=== PATIENT | female | born 1980 | race Caucasian/White ===

== ENCOUNTER 2023-06-28 13:08 | Emergency (ER) | payer BC ==
[~2023-06-28] VITALS: Ht 172.7 cm; Wt 87.1 kg
[~2023-06-28 13:08] MED LIST: ALUMAG30SU PO; Apple Cider Vi1 EACH PO; BUPR150ER PO; CHOL10002; DIPH50 PO; DOCU100 PO; HYDACE10B PO; HYDR1TAB94 PO; IBUP800 PO; Multiple Vitam1 EACH PO; NAPR220 PO; Norco 5-325 Ta1 EACH PO; PANT40 PO; PROM25 PO; Prilosec Otc20 MG PO; SERT100 PO; SLEEP AID25 MG PO; Sleep Aid25 M1 PO; TRI-SPRINTEC PO; Zofran Odt4 MG SL; [UNRECOGNIZED DRUG - OTHER] PO
[2023-06-28 14:16] LABS: BASOPHILS PERCENT AUTO 1 % (0-2); EOSINOPHILS ABSOLUTE AUTO 0.05 K/mm3 (0.00-0.68); EOSINOPHILS PERCENT AUTO 1 % (0-6); Hematocrit 49.4 % (33.0-51.0); Hemoglobin 16.8 g/dL (11.5-16.0); IMMATURE GRAN ABSOLUTE AUTO 0.03 K/mm3 (0.00-0.10); IMMATURE GRAN PERCENT AUTO 0 % (0-1); LYMPHOCYTES PERCENT AUTO 19 % (21-46); MONOCYTES ABSOLUTE AUTO 0.46 K/mm3 (0.16-1.47); MONOCYTES PERCENT AUTO 5 % (4-13); Mean Corpuscular HGB 30.1 pg (26.0-34.0); Mean Corpuscular Volume 88 fL (80-100); Mean Platelet Volume 9.6 fL (9.1-12.4); NEUTROPHILS ABSOLUTE AUTO 6.35 K/mm3 (1.96-9.15); NEUTROPHILS PERCENT AUTO 74 % (41-73); Platelet Count 245 K/mm3 (150-400); RDW Coefficient Variation 11.7 % (11.7-14.2); RDW Standard Deviation 37.6 fL (35.1-46.3); Red Blood Cell Count 5.59 M/mm3 (3.80-5.20); White Blood Cell Count 8.59 K/mm3 (4.00-11.30)
[2023-06-28 14:23] LABS: Source, Urine Clean Catch
[2023-06-28 14:27] LABS: Appearance, Urine Clear (Clear); Bilirubin, Urine Neg (Neg); Blood, Urine Neg (Neg); Color, Urine Yellow (P-Yellow); Glucose Qualitative, Urine Neg (Neg); Ketones, Urine 2+ (Neg); Leukocyte Esterase, Urine Neg (Neg); Nitrite, Urine Neg (Neg); Protein, Urine Neg (Neg); Urobilinogen, Urine NORM (Normal)
[2023-06-28 14:34] LABS: Albumin, Blood 3.9 g/dL (3.4-5.0); Albumin/Globulin Ratio 1.1 (0.8-1.8); Bilirubin, Total 0.7 mg/dL (0.1-1.0); Bun/Creatinine Ratio 10.4 (12.0-20.0); Calcium, Blood 8.9 mg/dL (8.5-10.1); Creatinine, Blood 0.96 mg/dL (0.40-1.00); Globulin, Blood 3.4 g/dL (2.2-4.0); Potassium, Blood 4.1 mmol/L (3.5-5.5); Total Protein, Blood 7.3 g/dL (6.4-8.2)
[2023-06-28] MEDS ORDERED: SUCR1 (18:22)
[2023-06-28] MEDS ORDERED: CIPR250 (18:22)
[2023-06-28] MEDS ORDERED: ONDA4ODT (18:23)
[2023-06-28] MEDS ORDERED: ONDA4ODT MM (19:40)
[2023-06-28] MEDS ORDERED: OXAYDO5 M1 PO (19:40)
[2023-06-28 19:45] VITALS: BP 114/72
== END 2023-06-28 20:03 | disposition home or self-care (01) ==
LOC: ER 13:08
PROVIDERS: Emergency Medicine
DX: K44.9 Diaphragmatic hernia without obstruction or gangrene (principal); R07.9 Chest pain, unspecified; R63.8 Other symptoms and signs concerning food and fluid intake; F17.210 Nicotine dependence, cigarettes, uncomplicated; Z79.899 Other long term (current) drug therapy
CPT/HCPCS: 36415; 71046; 80053; 81003; 81025; 83605; 83690; 84484; 85025; 93005; 93010; A9270; J1885; J7030

== ENCOUNTER 2023-07-17 06:48 | Day surgery (SDC) | payer BC ==
[~2023-07-17] VITALS: Ht 172.7 cm; Wt 79.8 kg
[~2023-07-17 06:48] MED LIST changes: +CIPR250; +ONDA4ODT MM; +ONDA4ODT PO; +OXAYDO5 M1 PO; +SUCR1
[2023-07-17 08:56] VITALS: BP 100/72
[2023-07-23] MEDS ORDERED: ACET80 PO (09:40)
[2023-07-23] MEDS ORDERED: SUCR1 PO (09:41)
== END 2023-07-17 08:50 | disposition home or self-care (01) ==
LOC: ORSCSDS 06:48
PROVIDERS: Surgery
PROC: 0DB98ZX Excision of Duodenum, Via Natural or Artificial Opening Endoscopic, Diagnostic (ICD-10-PCS; principal; 2023-07-17 08:00)
PROC: 0DB68ZX Excision of Stomach, Via Natural or Artificial Opening Endoscopic, Diagnostic (ICD-10-PCS; principal; 2023-07-17 08:00)
DX: R10.13 Epigastric pain (principal); K21.9 Gastro-esophageal reflux disease without esophagitis; R11.0 Nausea; K44.9 Diaphragmatic hernia without obstruction or gangrene; F17.210 Nicotine dependence, cigarettes, uncomplicated; Z79.899 Other long term (current) drug therapy
CPT/HCPCS: 88305; 88342; J2704; J7120

== ENCOUNTER 2023-07-24 09:26 | Inpatient (IN) | payer BC ==
[~2023-07-24] VITALS: Ht 172.7 cm; Wt 78.8 kg
[2023-07-24] VITALS (26 sets, daily range): BP systolic 104–128; BP diastolic 44–89
[~2023-07-24 09:26] MED LIST changes: +ACET80 PO; +SUCR1 PO
--- NOTE | 2023-07-24 10:07 | NUR ---
Ambulatory in Day Surgery. History, Chart, Medications and Allergies reviewed before start of procedure. Lungs clear T/O to Auscultation. Patient confirms NPO status and agrees with scheduled surgery. Pre-Op teaching done. Pt verbalizes understanding. Patient States Post-Procedure ride home has been arranged. PT BELONGINGS PLACED [facility].
--- NOTE | 2023-07-24 14:09 | NUR ---
1355 PT C/O NAUSEA AND UPPER ABDOMINAL PAIN. 1400 REGLAN IV 1403 ZOFRAN IV 1404 25 MCG FENTANYL 1409 PT RESTING QUIETLY
--- NOTE | 2023-07-24 19:13 | NUR ---
SHIFT SUMMARY POD0 LAP HIATAL HERNIA REPAIR WITH TOUPET FUNDOPLICATION, A/OX4, VSS, TOLERATING SMALL SIPS OF WATER, ABLE TO DO CLEARS FOR DINNER BUT SHE HAS NOT STARTED THIS YET DUE TO HER ONLY BEING ON THE FLOOR FOR JUST OVER 2 HOURS POST OP. MEDICATING WITH PO PAIN MEDS (SEE EMAR) IN WHICH SHE IS REPORTING IMPROVEMENT WITH IT. PT EDUCATED HER ON IMPORTANCE OF ALERTING STAFF IF SHE GETS NAUSEA AGAIN. NO OTHER EVENTS THIS SHIFT, CALL LIGHT IN REACH.
[2023-07-25 02:57] VITALS: BP 110/73
--- NOTE | 2023-07-25 04:23 | NUR ---
SHIFT SUMMARY POD 0 HEITAL HERNIA REPAIR c TOUPET FUNDIPLICATION. NO ACUTE CHANGES OVERNIGHT. VS WNL FOR PT. LAP SITE X4 C/D/I. PT REPORTED NAUSEA OVERNIGHT, MEDICATED PER EMAR. PT HAS TAKEN SMALL SIPS OF WATER, HAS NOT TAKEN PO MEDICATIONS OVERNIGHT. PT REPORTS MILD ANXIETY RELATED TO HEALING PROCESS. PT STATES SHE WISHES TO MANAGE WITHOUT MEDICATION INTERVENTION; USES COOL WASH CLOTH, DISTRACTION, AND DEEP BREATHING TECHNIQUES. SIGNIFICANT OTHER HAS STAYED AT PATIENT BEDSIDE OVERNIGHT. PT INDEPENDENT IN ROOM. CALL LIGHT WITHIN REACH, BED IN LOWEST POSITION, WILL REPORT TO DAY RN.
--- NOTE | 2023-07-25 04:37 | NUR ---
SHIFT SUMMARY AMENDMENT PATIENT IS POD 1, NO POD 0.
[2023-07-25 06:09] LABS: Hematocrit 41.3 % (33.0-51.0); Mean Corpuscular HGB 29.5 pg (26.0-34.0); Mean Corpuscular HGB Conc 33.9 g/dL (31.5-36.5); Mean Corpuscular Volume 87 fL (80-100); Mean Platelet Volume 10.3 fL (9.1-12.4); Platelet Count 198 K/mm3 (150-400); RDW Coefficient Variation 11.9 % (11.7-14.2); RDW Standard Deviation 38.4 fL (35.1-46.3); Red Blood Cell Count 4.74 M/mm3 (3.80-5.20); White Blood Cell Count 10.99 K/mm3 (4.00-11.30)
[2023-07-25 06:34] LABS: Bun/Creatinine Ratio 10.3 (12.0-20.0); Calcium, Blood 8.6 mg/dL (8.5-10.1); Creatinine, Blood 0.78 mg/dL (0.40-1.00); Magnesium, Blood 2.3 mg/dL (1.6-2.4)
[2023-07-25 07:15] VITALS: BP 114/71
[2023-07-25 15:03] VITALS: BP 103/62
--- NOTE | 2023-07-25 17:56 | NUR ---
SHIFT SUMMARY POD1 HIATAL HERNIA REPAIR c TOUPET FUNDOPLICATION, A/OX4, VSS, SHE HAS NOT BEEN TOLERATING PO SHE HAS BEEN HAVING DIFFICULTY WITH SWALLOWING ADN THEN HAVING NAUSEA AFTERWARDS, FLUIDS INFUSING FOR HYDDRATION, PAIN AND NAUSEA MEDS ORDERED (SEE EMAR). NO OTHER EVENTS THIS SHIFT, CALL LIGHT IN REACH.
[2023-07-25 19:23] VITALS: BP 116/69
[2023-07-25 20:31] VITALS: BP 110/71
[2023-07-26] VITALS (16 sets, daily range): BP systolic 91–131; BP diastolic 59–87
--- NOTE | 2023-07-26 04:11 | NUR ---
SHIFT SUMMARY POD 2 HEITAL HERNIA REPAIR c TOUPET FUNDIPLICATION. NO ACUTE CHANGES OVERNIGHT. A&O x4. VS WNL FOR PT. LAP SITE X4 C/D/I. PT REPORTED NAUSEA OVERNIGHT, MEDICATED PER EMAR. PT HAS NOT BEEN TOLERATING PO R/T DIFFICULTY SWALLOWING AND NAUSEA. FLUIDS INFUSING FOR HYDRATION. SIGNIFICANT OTHER AT [facility] OVERNIGHT. PT INDEPENDENT IN ROOM. CALL LIGHT WITHIN REACH, BED IN LOWEST POSITION, WILL REPORT TO DAY RN.
--- NOTE | 2023-07-26 07:55 | NUR ---
0715-recvd bedside report from previous shift RN Petar; pt asleep in bed, bed rails up x 2, call light within reach, bed in lowest position. Spouse in room 0735-Dr Joya rounding in pt. Pt rates pain at 7/10, medicated per mar for pain and nausea
--- NOTE | 2023-07-26 14:28 | NUR ---
1415-pt transferred to imaging via wheelchair
--- NOTE | 2023-07-26 17:31 | NUR ---
FOLLOWING BARIUM SWALLOW STUDY, DR MAYO WILL RETURN PT TO OR THIS EVENING. PT/SPOUSE NOTIFED OF THIS DEVELOPMENT; APPEAR TO BE PREPARED. PT NPO SINCE NOTIFICATION FROM DR MAYO. DAYSURGERY RN INTO ROOM APPROX 1645 TO PREPARE SURGICAL PACKET. DR MAYO ROUNDING AND EXPLAINING SURGFICAL INTERVENTION. FAMILY IN ROOM WITH PATIENT. PT REPORTS NAUSEA, NO VOMITING. MEDICATION PER MAR FOR PAIN AND NAUSEA. PT TRANSFERRED TO [facility] AT 1735
--- NOTE | 2023-07-26 17:35 | NUR ---
Into [facility] via [employer]. History, Chart, Medications and Allergies reviewed before start of procedure.Lungs clear T/O to Auscultation. Patient confirms NPO status and agrees with scheduled surgery.
--- NOTE | 2023-07-26 18:45 | NUR ---
07/26/23 [id number] Larry Mcrae History, Chart, Medications and Allergies reviewed before start of procedure.MONITOR INTACT WITH CONTINUOUS PULSE OXIMETRY, CONTINUOUS END TITAL CO2, AND INTERMITTENT BLOOD PRESSURE.EKG MONITORED DURING PROCEDURE.Bite Block Placed,WILL REMOVE AFTER PROCEDURE. See Anesthesia record/DR DICKERSON.
[2023-07-27 00:36] VITALS: BP 108/61
[2023-07-27 04:49] VITALS: BP 123/77
--- NOTE | 2023-07-27 05:12 | NUR ---
SHIFT SUMMARY PT POD 0 LAP HIATAL CLOSURE REVISION. PT HAS HAD INTERMITTENT PAIN AND NAUSEA T/O SHIFT, MEDICATED PER EMAR. PT STILL REPORTING SOME PAIN WHEN SWALLOWING, DESCRIBES A "PRESSURE" LIKE FEELING BUT REPORTS BETTER AND NOTHING LIKE IT WAS BEFORE. PT HAS BEEN ABLE TO TAKE IN A FEW BITES OF JELLO AND HAS BEEN DRINKING WATER AND EATING ICE CHIPS. LAP SITES DRY AND INTACT. PT CONCERNED ABOUT ADIPOSE DIMPILING ABOVE FAR LEFT LAP INCISON WHEN STANDING, APPEARS FLAT WHEN LYING DOWN. BOWEL TONES HYPERACTIVE, NOT PASSING GAS. VITALS STABLE. BED IN LOWEST POSITON, CALL LIGHT WITHIN REACH.
[2023-07-27 07:44] VITALS: BP 113/78
[2023-07-27 15:19] VITALS: BP 115/78
--- NOTE | 2023-07-27 16:51 | NUR ---
ENCOURAGED AMBULATION
--- NOTE | 2023-07-27 17:02 | NUR ---
SUMMARY PT HAD DIFFICULTY SWALLOWING PILLS WHOLE, DR HUIZAR CHANGED PAIN MEDS TO LORTAB ELIXIR. ADMINISTERED PER ORDERS; PT SWALLOWING WITHOUT DIFFICULTY. HAD C/O EPIGASTRIC AND INCISIONAL PAIN T/O SHIFT. MEDICATED PER ORDERS. ENCOURAGED OOB AND AMBULATION; PT AMBULATED IN ROOM AND SAT UP IN CHAIR EARLIER AND VERBALIZED UNDERSTANDING WHEN ADVISED TO REPEAT ACTIVITY. MEDICATED PER ORDERS FOR NAUSEA. PT TAKING SMALL AMOUNTS OF CLEAR LIQUIDS. FLUIDS RESTARTED PER ORDERS FOR INADEQUATE PO INTAKE. LAP SITES CDI TO ABD. SPOUSE BEDSIDE. CALL LIGHT IN REACH.
[2023-07-27 19:58] VITALS: BP 101/70
[2023-07-28 04:04] VITALS: BP 101/63
--- NOTE | 2023-07-28 04:28 | NUR ---
SHIFT SUMMARY POD4 FROM FUNDIPLICATION. POD2 FROM REVISION. X3 LAP SITES. C/D/I, MILD BRUISING NOTED AROUND INCISIONS. VSS. PT SLEPT ON AND OFF T/O THE NIGHT. TOLLERATED MINIMAL SIPS OF FLUID, REPORTS PAINFUL SWALLOWING IN MIDEPIGASTRIC REGION AND ONGOING NAUSEA. MEDICATED FOR NAUSEA AND PAIN T/O THE NIGHT. PT AMBULATING TO THE BATHROOM INDEPENDENTLY, VOIDING W/O DIFFICULTY. REPORTS ONE FLATTUS PASSED ON PREVIOUS SHIFT. HYPOTENSIVE BOWEL TONES NOTED. NO ACUTE EVENTS T/O THE NIGHT. PLAN TO MONITOR AND ADVANCE DIET PER SURGEON
[2023-07-28 07:36] VITALS: BP 106/70
[2023-07-28 16:32] VITALS: BP 118/81
--- NOTE | 2023-07-28 17:03 | NUR ---
summary DR HUIZAR IN TO SEE PT. PT REPORTS WHEN TAKES SIPS OF FLUIDS, IT FEELS LIKE IT "JUST SITS THERE" IN MIDEPIGASTRIC REGION. HAS BEEN PAINFUL AND NAUSEATED T/O DAY; MEDICATED PER ORDERS FOR BOTH T/O DAY. PT AMBULATED IN [place] WITH SPOUSE AND GETS UP INDEPENDENTLY TO RESTROOM. CALL LIGHT IN REACH. PLEASANT AND COOPERATIVE.
[2023-07-28 18:45] VITALS: BP 115/79
--- NOTE | 2023-07-29 04:09 | NUR ---
SHIFT SUMMARY POD3 REVISION. X3 LAP SITES ARE C/D/I. LAP SITE ON THE PTS LEFT ABD IS MORE SORE COMPARED TO THE OTHER TWO. VSS. PT SLEPT ON AND OFF T/O THE NIGHT. PT AMBULATING TO THE BATHROOM TO VOID. DENIES PASSING FLATTUS. MEDICATED FOR PAIN WTIH PRN'S WITH GOOD RESULTS. NO ACUTE EVENTS T/O THE NIGHT. TOLLERATING MINIMAL PO INTAKE, MEDICATED FOR NAUSEA. NO EMESIS NOTED. PT C/O HICCUPS T/O THE NIGHT. PLAN TO SLOWLY ADVANCE DIET PER SURGEON
[2023-07-29 04:49] VITALS: BP 102/62
[2023-07-29 05:26] VITALS: BP 108/75
[2023-07-29 07:18] VITALS: BP 107/72
[2023-07-29 15:00] VITALS: BP 113/76
--- NOTE | 2023-07-29 18:56 | NUR ---
SHIFT SUMMARY PT HAS TOLERATED TWO ENSURES T/O SHIFT. MEDICATED TWICE FOR NAUSEA. AMBULATING IN HALLWAY. PLAN FOR POS DC TOMORROW.
[2023-07-29 19:05] VITALS: BP 110/67
[2023-07-30 02:22] VITALS: BP 103/69
[2023-07-30 07:15] VITALS: BP 106/81
--- NOTE | 2023-07-30 07:28 | NUR ---
SHIFT SUMMARY NO CHANGES NOTED THROUGH THE NIGHT, PT CHOSE TO MANAGE PAIN/NAUSEA W/PO MEDS, SHE IS TOLERATING IT SO FAR, VOIDING WNL, STATES SHE HAD 2 MED BM'S THROUGH THE NIGHT, INDEPENDENT IN THE ROOM, AT BEDSIDE, LAP SITE X4, C/D/I W/WOUND GLUE, REPORT GIVEN TO COLTON BARRIGA, CALL LIGHT IN REACH.
[2023-07-30] MEDS ORDERED: Norco 7.5-3251 EACH PO (12:20)
--- NOTE | 2023-07-30 12:32 | NUR ---
DISCHARGE PT DISCHARGED HOME FROM UNIT AT APROX 1335. PT GIVEN WRITTEN AND VERBAL DC INSTRUCTIONS AND VERBALIZED UNDERSTANDING OF THESE INSTRUCTIONS. WRITTEN RX FOR PAIN MEDICATION GIVEN TO PT, COPY IN CHART. WC TO PRIVATE VEHICLE
== END 2023-07-30 12:34 | disposition home or self-care (01) | DRG 327 ==
LOC: SURS 09:26
PROVIDERS: ADMIT Surgery
PROC: 0BQT4ZZ Repair Diaphragm, Percutaneous Endoscopic Approach (ICD-10-PCS; 2023-07-24)
PROC: 8E0W4CZ Robotic Assisted Procedure of Trunk Region, Percutaneous Endoscopic Approach (ICD-10-PCS; 2023-07-24)
PROC: 0DQ44ZZ Repair Esophagogastric Junction, Percutaneous Endoscopic Approach (ICD-10-PCS; principal; 2023-07-24 10:45)
PROC: 0WQF4ZZ Repair Abdominal Wall, Percutaneous Endoscopic Approach (ICD-10-PCS; 2023-07-26)
PROC: 8E0W4CZ Robotic Assisted Procedure of Trunk Region, Percutaneous Endoscopic Approach (ICD-10-PCS; 2023-07-26)
DX: K44.9 Diaphragmatic hernia without obstruction or gangrene (principal); K91.30 Postprocedural intestinal obstruction, unspecified as to partial versus complete; K21.9 Gastro-esophageal reflux disease without esophagitis; K66.8 Other specified disorders of peritoneum; F17.210 Nicotine dependence, cigarettes, uncomplicated; Z90.49 Acquired absence of other specified parts of digestive tract; Z90.710 Acquired absence of both cervix and uterus; Z98.890 Other specified postprocedural states; Z79.891 Long term (current) use of opiate analgesic; Z79.899 Other long term (current) drug therapy; Y83.8 Other surgical procedures as the cause of abnormal reaction of the patient, or of later complication, without mention of misadventure at the time of the procedure
CPT/HCPCS: 36415; 74220; 80048; 83735; 85027; A9270; J1100; J1170; J1650; J1885; J2060; J2250; J2371; J2405; J2704; J2765; J3010; J7120